=== PATIENT | female | born 1935 ===

== ENCOUNTER 2022-03-31 07:18 | Outpatient (CLI) | payer OTHER | END 2022-03-31 07:19 | disposition home or self-care (01) | LOC: NUCLEAR 07:18 | DX: I20.8 Other forms of angina pectoris (principal) | CPT/HCPCS: 78452; 93017; A9500; J0153 ==

== ENCOUNTER 2022-04-02 10:06 | Inpatient (IN) | payer OTHER ==
[~2022-04-02] VITALS: Ht 154.9 cm; Wt 68.9 kg
[2022-04-02] MEDS ORDERED: NIFEDIPINE ER60 MG PO (11:46)
[2022-04-02] MEDS ORDERED: AVAPRO300 MG PO (11:46)
[2022-04-02] MEDS ORDERED: LABETALOL HCL100 MG PO (11:47)
[2022-04-02] MEDS ORDERED: ADULT LOW DOSE81 M1 PO (11:47)
[2022-04-02] MEDS ORDERED: HYDRALAZINE HC100 MG PO (11:47)
[2022-04-02] MEDS ORDERED: FAMOTIDINE40 MG PO (11:48)
[2022-04-02] MEDS ORDERED: JANUVIA50 MG PO (11:48)
[2022-04-02] MEDS ORDERED: LIPITOR20 MG PO (11:48)
[2022-04-02] MEDS ORDERED: MAXIFED TABLET1 EACH PO (11:49)
[2022-04-14] MEDS ORDERED: FLONASE16 GM (14:45)
[2022-04-14] MEDS ORDERED: BUMETANIDE1 MG (14:45)
[2022-04-23] MEDS ORDERED: 8 HOUR PAIN RE650 M1 PO (12:14)
[2022-04-23] MEDS ORDERED: INTESTINEX680 M1 PO (12:14)
== END 2022-04-23 15:14 | disposition home or self-care (01) | DRG 330 ==
LOC: EDUNIT# 10:15 → SURH 04-09 09:30 → O/R 04-14 05:45 → SURH 04-14 05:45
PROVIDERS: ADMIT Surgery; ATTEND Surgery
PROC: 07BB4ZZ Excision of Mesenteric Lymphatic, Percutaneous Endoscopic Approach (ICD-10-PCS; 2022-04-14)
PROC: 0DTF4ZZ Resection of Right Large Intestine, Percutaneous Endoscopic Approach (ICD-10-PCS; principal; 2022-04-14 11:30)
PROC: B54NZZZ Ultrasonography of Left Upper Extremity Veins (ICD-10-PCS; 2022-04-22)
DX: C18.0 Malignant neoplasm of cecum (principal); N17.8 Other acute kidney failure; E87.1 Hypo-osmolality and hyponatremia; K91.89 Other postprocedural complications and disorders of digestive system; K56.7 Ileus, unspecified; E87.5 Hyperkalemia; I80.8 Phlebitis and thrombophlebitis of other sites; R00.1 Bradycardia, unspecified; R59.0 Localized enlarged lymph nodes; D50.9 Iron deficiency anemia, unspecified; Z20.822 Contact with and (suspected) exposure to COVID-19; I12.9 Hypertensive chronic kidney disease with stage 1 through stage 4 chronic kidney disease, or unspecified chronic kidney disease; N18.30 Chronic kidney disease, stage 3 unspecified; E11.22 Type 2 diabetes mellitus with diabetic chronic kidney disease; Z79.4 Long term (current) use of insulin; I25.10 Atherosclerotic heart disease of native coronary artery without angina pectoris; I11.9 Hypertensive heart disease without heart failure

== ENCOUNTER 2023-06-29 06:00 | Day surgery (SDC) | payer OTHER ==
[~2023-06-29 06:00] MED LIST: 8 HOUR PAIN RE650 M1 PO; ADULT LOW DOSE81 M1 PO; AVAPRO300 MG PO; BUMETANIDE1 MG; FAMOTIDINE40 MG PO; FLONASE16 GM; HYDRALAZINE HC100 MG PO; INTESTINEX680 M1 PO; JANUVIA50 MG PO; LABETALOL HCL100 MG PO; LIPITOR20 MG PO; MAXIFED TABLET1 EACH PO; NIFEDIPINE ER60 MG PO
== END 2023-06-29 11:20 | disposition home or self-care (01) ==
LOC: AMB-ENDOS 06:00
PROVIDERS: ATTEND Surgery
DX: K63.89 Other specified diseases of intestine (principal); Z85.038 Personal history of other malignant neoplasm of large intestine; K64.8 Other hemorrhoids; Z20.822 Contact with and (suspected) exposure to COVID-19